=== PATIENT | male | born 1930 | race Caucasian/White ===

== ENCOUNTER 2017-03-17 12:21 | Observation (INO) | payer MEDICARE ==
[~2017-03-17] VITALS: Ht 170.2 cm; Wt 66.8 kg
[~2017-03-17 12:21] MED LIST: ALPR0.5T10 PO; ASPI-515 PO; CEPH-376 PO; CETI10TA18 PO; CHOL200024 PO; CITRICAL PO; DOCU100C33 PO; FISH OIL OMEGA1 EACH PO; GINK120C PO; LEVO50TA PO; MELO15TA24 PO; MULT-224 PO; NIAC500T4 PO; OMEP-110 PO; PRIM50TA PO; [UNRECOGNIZED DRUG - OTHER] PO; provastatin PO; vitamin e PO
[2017-03-17] MEDS ORDERED: ONDANSETRON 2MG/ML, 2ML IVPush ONE (12:30)
[2017-03-17] MEDS ORDERED: ONDANSETRON 2MG/ML, 2ML ONE (12:41)
[2017-03-17] MEDS ORDERED: HYDROmorphone 2 MG/ML, 1ML ONE ×3 (12:41→15:07)
[2017-03-17] MEDS: HYDROmorphone 2 MG/ML, 1ML IVPush PRN ×3 (12:45→15:09)
[2017-03-17 12:58] LABS: BASOPHILS # (AUTO) 0.02 x10^3/uL (0-0.1); BASOPHILS % (AUTO) 0 % (0-1); EOSINOPHILS % (AUTO) 3 % (1-7); LYMPHOCYTES # (AUTO) 2.33 x10^3/uL (1-3.4); LYMPHOCYTES % (AUTO) 33 % (22-44); MD NO; MEAN CORPUSCULAR HGB CONC 33.5 g/dL (33.2-36.2); MEAN CORPUSCULAR VOLUME 92.6 fL (81-97); MEAN PLATELET VOLUME 9.8 fL (7.4-10.4); MONOCYTES % (AUTO) 11 % (2-9); NEUTROPHILS # (AUTO) 3.69 x10^3/uL (1.8-6.8); NEUTROPHILS % (AUTO) 53 % (42-75); PLATELET COUNT 186 x10^3/uL (130-400); RED CELL DISTRIBUTION WIDTH 12.6 % (9.4-14.8)
[2017-03-17 13:10] LABS: ALANINE AMINOTRANSFERASE 25 U/L (12-78); ALBUMIN 3.9 g/dL (3.4-5.0); ANION GAP 12 mmol/L (5-15); CHLORIDE 106 mmol/L (98-107); CREATININE 1.09 mg/dL (0.7-1.3)
[2017-03-17 13:12] LABS: ALKALINE PHOSPHATASE 72 U/L (45-117); BILIRUBIN,TOTAL 0.4 mg/dL (0.2-1.0); TOTAL PROTEIN 7.6 g/dL (6.4-8.2)
[2017-03-17 13:13] LABS: ACETAMINOPHEN < 2 mcg/mL (10-30)
[2017-03-17] MEDS ORDERED: OMNIPAQUE 350 MG/ML, 100ML BOTTLE ONE (14:33)
[2017-03-17] MEDS ORDERED: HYDROmorphone 2 MG/ML, 1ML IVPush PRN (15:00)
[2017-03-17] MEDS ORDERED: ENALAPRILAT 1.25 MG/ML, 2ML IVPush PRN (16:00)
[2017-03-17] MEDS ORDERED: ONDANSETRON ODT 4 MG PO PRN (16:00)
[2017-03-17] MEDS ORDERED: OXYcodone/APAP 5/325MG TABLET PO PRN (16:00)
[2017-03-17] MEDS ORDERED: ACETAMINOPHEN 325 MG TABLET PO PRN (16:00)
[2017-03-17] MEDS ORDERED: ONDANSETRON 2MG/ML, 2ML IVPush PRN (16:00)
[2017-03-17] MEDS ORDERED: DOCUSATE 100 MG CAPSULE PO PRN (16:00)
[2017-03-17] MEDS ORDERED: LABETALOL 5MG/ML, 20ML IVPush PRN (16:00)
[2017-03-17] MEDS ORDERED: SODIUM CHLORIDE 0.9% 1,000 ML IV ONE (16:00)
[2017-03-17] MEDS ORDERED: ENOXAPARIN 40 MG/0.4 ML SQ SCH (16:00)
[2017-03-17] MEDS ORDERED: DIAZEPAM 5 MG TABLET PO ONE (16:00)
[2017-03-17 16:42] VITALS: BP 143/70
[2017-03-17 18:21] VITALS: BP 118/74
[2017-03-17] MEDS: OMEPRAZOLE 20 MG CAPSULE.DR PO SCH (21:00)
[2017-03-17] MEDS ORDERED: [UNRECOGNIZED DRUG - OTHER] PO SCH (21:00)
[2017-03-17] MEDS ORDERED: DOCUSATE 100 MG CAPSULE PO SCH (21:00)
[2017-03-17] MEDS: BACLOFEN 10 MG TABLET PO SCH (21:00)
[2017-03-17] MEDS ORDERED: PRAVASTATIN 20 MG TABLET PO SCH (21:00)
[2017-03-17] MEDS: PRIMIDONE 50 MG TABLET PO SCH (21:01)
[2017-03-18 02:40] VITALS: BP 101/58
[2017-03-18 06:04] LABS: ANION GAP 7 mmol/L (5-15); CALCIUM 8.4 mg/dL (8.5-10.1); CHLORIDE 112 mmol/L (98-107); CREATININE 0.97 mg/dL (0.7-1.3)
[2017-03-18 06:31] LABS: BASOPHILS # (AUTO) 0.05 x10^3/uL (0-0.1); BASOPHILS % (AUTO) 1 % (0-1); EOSINOPHILS # (AUTO) 0.26 x10^3/uL (0-0.4); EOSINOPHILS % (AUTO) 4 % (1-7); LYMPHOCYTES # (AUTO) 3.24 x10^3/uL (1-3.4); LYMPHOCYTES % (AUTO) 45 % (22-44); MD SCAN; MEAN CORPUSCULAR HEMOGLOBIN 31.1 pg (27.5-34.5); MEAN CORPUSCULAR HGB CONC 33.6 g/dL (33.2-36.2); MEAN CORPUSCULAR VOLUME 92.6 fL (81-97); MEAN PLATELET VOLUME 10.2 fL (7.4-10.4); MONOCYTES # (AUTO) 0.89 x10^3/uL (0.2-0.8); MONOCYTES % (AUTO) 12 % (2-9); NEUTROPHILS # (AUTO) 2.78 x10^3/uL (1.8-6.8); NEUTROPHILS % (AUTO) 39 % (42-75); PLATELET COUNT 148 x10^3/uL (130-400); RED BLOOD COUNT 4.86 x10^6/uL (4.38-5.82)
[2017-03-18] MEDS ORDERED: CALCIUM/VITAMIN D3 250-125 TABLET PO SCH (09:00)
[2017-03-18] MEDS: BACLOFEN 10 MG TABLET PO SCH (09:00)
[2017-03-18] MEDS ORDERED: LEVOTHYROXINE 50 MCG TABLET PO SCH (09:00)
[2017-03-18] MEDS ORDERED: OMEGA-3/FISH OIL CAPSULE PO SCH (09:00)
[2017-03-18] MEDS ORDERED: CHOLECALCIFEROL 400 UNITS TABLET PO SCH (09:00)
[2017-03-18] MEDS ORDERED: SENNA/DOCUSATE TABLET PO SCH (09:00)
[2017-03-18] MEDS ORDERED: MULTIVITAMIN 1 TABLET PO SCH (09:00)
[2017-03-18] MEDS ORDERED: GINKGO BILOBA EXTRACT 120 MG PO SCH (09:00)
[2017-03-18] MEDS ORDERED: ASPIRIN 81 MG TABLET EC PO SCH (09:00)
[2017-03-18] MEDS ORDERED: VITAMIN E 400 UNITS CAPSULE PO SCH (09:00)
[2017-03-18 10:35] VITALS: BP 164/81
[2017-03-18] MEDS: PRIMIDONE 50 MG TABLET PO SCH (10:42)
[2017-03-18] MEDS: OMEPRAZOLE 20 MG CAPSULE.DR PO SCH (10:42)
[2017-03-18] MEDS ORDERED: BACL-19 PO (11:36)
[2017-03-18 13:16] VITALS: BP 140/76
== END 2017-03-18 14:39 | disposition home or self-care (01) ==
LOC: ED 14:39 → EDIP 14:57 → INTOOBSV 14:57 → 3NE 16:10 → DCLOUNGE 03-18 14:30
PROVIDERS: ADMIT Family Medicine; ATTEND Family Medicine
DX: M50.30 Other cervical disc degeneration, unspecified cervical region (principal); R00.1 Bradycardia, unspecified; M19.90 Unspecified osteoarthritis, unspecified site; K21.9 Gastro-esophageal reflux disease without esophagitis; G89.29 Other chronic pain; Z85.828 Personal history of other malignant neoplasm of skin; Z87.11 Personal history of peptic ulcer disease; Z96.652 Presence of left artificial knee joint
CPT/HCPCS: 36415; 70450; 70496; 70498; 72125; 72141; 80048; 80053; 80307; 85025; 93005; 96361; 96374; 96375; 96376; 97163; 97165; 99285; G0378; G8978; G8979; G8980; J1170; J2405; J7030; Q9967

== ENCOUNTER → 2017-05-05 | Outpatient (CLI) | payer MEDICARE ==
[~2017-05-05] MED LIST changes: +BACL-19 PO
== END | disposition home or self-care (01) ==
LOC: CFH 09:10
PROVIDERS: ATTEND Neurological Surgery
DX: M47.812 Spondylosis without myelopathy or radiculopathy, cervical region (principal)
CPT/HCPCS: 72050; 72125

== ENCOUNTER → 2017-08-04 | Outpatient (CLI) | payer MEDICARE | END | disposition home or self-care (01) | LOC: CFH 11:27 | PROVIDERS: ATTEND Registered Nurse Registered Nurse First Assistant | DX: M50.33 Other cervical disc degeneration, cervicothoracic region (principal); M41.82 Other forms of scoliosis, cervical region | CPT/HCPCS: 72040 ==

== ENCOUNTER 2018-01-16 12:41 | Inpatient (IN) | payer MEDICARE ==
[~2018-01-16] VITALS: Ht 170.2 cm; Wt 62.5 kg
[2018-01-16] MEDS ORDERED: SODIUM CHLORIDE 0.9% 1,000 ML IV ONE (13:37)
[2018-01-16] MEDS ORDERED: SODIUM CHLORIDE FLUSH 10ML SYR IVF ONE (14:00)
[2018-01-16 14:06] LABS: BASOPHILS # (AUTO) 0.02 x10^3/uL (0-0.1); BASOPHILS % (AUTO) 0 % (0-1); EOSINOPHILS # (AUTO) 0.18 x10^3/uL (0-0.4); EOSINOPHILS % (AUTO) 4 % (1-7); LYMPHOCYTES # (AUTO) 1.84 x10^3/uL (1-3.4); LYMPHOCYTES % (AUTO) 37 % (22-44); MD NO; MEAN CORPUSCULAR HEMOGLOBIN 30.3 pg (27.5-34.5); MEAN CORPUSCULAR HGB CONC 33.7 g/dL (33.2-36.2); MEAN CORPUSCULAR VOLUME 89.8 fL (81-97); MEAN PLATELET VOLUME 9.3 fL (7.4-10.4); MONOCYTES # (AUTO) 0.49 x10^3/uL (0.2-0.8); MONOCYTES % (AUTO) 10 % (2-9); NEUTROPHILS # (AUTO) 2.41 x10^3/uL (1.8-6.8); NEUTROPHILS % (AUTO) 49 % (42-75); PLATELET COUNT 178 x10^3/uL (130-400); RED BLOOD COUNT 4.95 x10^6/uL (4.38-5.82); RED CELL DISTRIBUTION WIDTH 15.3 % (9.4-14.8)
[2018-01-16 14:13] LABS: ALANINE AMINOTRANSFERASE 21 U/L (12-78); ALBUMIN 3.7 g/dL (3.4-5.0); ANION GAP 5 mmol/L (5-15); CALCIUM 8.5 mg/dL (8.5-10.1); CHLORIDE 110 mmol/L (98-107); CREATININE 0.98 mg/dL (0.7-1.3)
[2018-01-16 14:17] LABS: ALKALINE PHOSPHATASE 71 U/L (45-117); BILIRUBIN,TOTAL 0.4 mg/dL (0.2-1.0); TOTAL PROTEIN 6.7 g/dL (6.4-8.2); TROPONIN I < 0.015 ng/mL (0.000-0.045)
[2018-01-16] MEDS ORDERED: OMNIPAQUE 350 MG/ML, 100ML BOTTLE ONE (14:59)
[2018-01-16 15:38] LABS: MICROSCOPIC NOT IND
[2018-01-16 15:42] LABS: CULTURE INDICATED? NO
[2018-01-16] MEDS: SODIUM CHLORIDE 0.9% 1,000 ML IV SCH ×2 (15:45→22:04)
[2018-01-16] MEDS ORDERED: ACETAMINOPHEN 325 MG TABLET PO PRN (16:00)
[2018-01-16] MEDS ORDERED: MECLIZINE CHEWABLE 25 MG TAB PO PRN (16:00)
[2018-01-16 16:21] VITALS: BP 148/61
[2018-01-16] MEDS ORDERED: OXYC5CAP2 PO (16:28)
[2018-01-16 17:04] VITALS: BP 123/59
[2018-01-16] MEDS ORDERED: ENOXAPARIN 40 MG/0.4 ML ONE (17:32)
[2018-01-16] MEDS: OXYcodone/APAP 10/325MG TABLET PO PRN (17:35)
[2018-01-16] MEDS: ENOXAPARIN 40 MG/0.4 ML SQ SCH (17:35)
[2018-01-16 19:40] VITALS: BP 142/69
[2018-01-16] MEDS: DOCUSATE 100 MG CAPSULE PO SCH (20:53)
[2018-01-16] MEDS ORDERED: PRIMIDONE 50 MG TABLET PO SCH (21:00)
[2018-01-17] VITALS (9 sets, daily range): BP systolic 121–153; BP diastolic 62–76
[2018-01-17 05:02] LABS: BASOPHILS # (AUTO) 0.03 x10^3/uL (0-0.1); BASOPHILS % (AUTO) 1 % (0-1); EOSINOPHILS # (AUTO) 0.23 x10^3/uL (0-0.4); EOSINOPHILS % (AUTO) 4 % (1-7); LYMPHOCYTES # (AUTO) 1.86 x10^3/uL (1-3.4); LYMPHOCYTES % (AUTO) 33 % (22-44); MD NO; MEAN CORPUSCULAR HEMOGLOBIN 30.8 pg (27.5-34.5); MEAN CORPUSCULAR HGB CONC 34.6 g/dL (33.2-36.2); MEAN PLATELET VOLUME 9.3 fL (7.4-10.4); MONOCYTES # (AUTO) 0.68 x10^3/uL (0.2-0.8); MONOCYTES % (AUTO) 12 % (2-9); NEUTROPHILS # (AUTO) 2.81 x10^3/uL (1.8-6.8); NEUTROPHILS % (AUTO) 50 % (42-75); PLATELET COUNT 167 x10^3/uL (130-400); RED BLOOD COUNT 4.42 x10^6/uL (4.38-5.82); RED CELL DISTRIBUTION WIDTH 15.1 % (9.4-14.8)
[2018-01-17 05:12] LABS: ALBUMIN 3.1 g/dL (3.4-5.0); ANION GAP 9 mmol/L (5-15); CALCIUM 7.9 mg/dL (8.5-10.1); CHLORIDE 112 mmol/L (98-107)
[2018-01-17 05:15] LABS: ALANINE AMINOTRANSFERASE 16 U/L (12-78); ALKALINE PHOSPHATASE 58 U/L (45-117); BILIRUBIN,TOTAL 0.3 mg/dL (0.2-1.0); CHOLESTEROL, TOTAL 121 mg/dL (140-239); CREATININE 0.83 mg/dL (0.7-1.3); HDL CHOL % 33 % (26-37); HDL CHOLESTEROL (DIRECT) 40 mg/dL (40-60); LDL CHOLESTEROL,CALCULATED 44 mg/dL (54-169); LDL/HDL RATIO 1.1 (0.5-3.0); TOTAL PROTEIN 5.6 g/dL (6.4-8.2); TRIGLYCERIDES 183 mg/dL (50-200); VLDL CHOLESTEROL 37 mg/dL (0-25)
[2018-01-17] MEDS: ASPIRIN 81 MG TABLET EC PO SCH (05:58)
[2018-01-17] MEDS ORDERED: LEVOTHYROXINE 50 MCG TABLET ONE (06:06)
[2018-01-17] MEDS: LEVOTHYROXINE 50 MCG TABLET PO SCH (06:10)
[2018-01-17] MEDS ORDERED: ASPIRIN 81 MG TABLET EC PO SCH (09:00)
[2018-01-17] MEDS ORDERED: LEVOTHYROXINE 50 MCG TABLET PO SCH (09:00)
[2018-01-17] MEDS ORDERED: PRIMIDONE 250 MG TABLET ONE (09:01)
[2018-01-17] MEDS: PRIMIDONE 50 MG TABLET PO SCH ×2 (10:05→21:00)
[2018-01-17] MEDS: SODIUM CHLORIDE 0.9% 1,000 ML IV SCH (12:48)
[2018-01-17] MEDS: ENOXAPARIN 40 MG/0.4 ML SQ SCH (14:57)
[2018-01-17] MEDS: OXYcodone/APAP 10/325MG TABLET PO PRN ×3 (14:57→21:00)
[2018-01-17] MEDS: DOCUSATE 100 MG CAPSULE PO SCH (20:59)
[2018-01-18] VITALS (9 sets, daily range): BP systolic 104–157; BP diastolic 57–93
[2018-01-18] MEDS: OXYcodone/APAP 10/325MG TABLET PO PRN ×2 (03:10→08:12)
[2018-01-18] MEDS: ASPIRIN 81 MG TABLET EC PO SCH (06:26)
[2018-01-18] MEDS: LEVOTHYROXINE 50 MCG TABLET PO SCH (06:26)
[2018-01-18] MEDS: PRIMIDONE 50 MG TABLET PO SCH (08:13)
== END 2018-01-18 11:25 | disposition home or self-care (01) | DRG 309 ==
LOC: ED 15:02 → EDIP 15:03 → ED 15:41 → 5SO 17:31 → DCLOUNGE 01-18 11:13
PROVIDERS: ADMIT Internal Medicine; ATTEND Internal Medicine
DX: R00.1 Bradycardia, unspecified (principal); E44.0 Moderate protein-calorie malnutrition; G25.0 Essential tremor; M54.2 Cervicalgia; E03.9 Hypothyroidism, unspecified; G89.29 Other chronic pain; K21.9 Gastro-esophageal reflux disease without esophagitis; M19.90 Unspecified osteoarthritis, unspecified site; Z79.891 Long term (current) use of opiate analgesic; Z79.82 Long term (current) use of aspirin; Z79.899 Other long term (current) drug therapy; Z68.21 Body mass index [BMI] 21.0-21.9, adult; Z88.2 Allergy status to sulfonamides; Z88.8 Allergy status to other drugs, medicaments and biological substances
CPT/HCPCS: 0399T; 36415; 70450; 70498; 80053; 80061; 81003; 82962; 83735; 84443; 84484; 85025; 93005; 93306; 99285; G0378; J1650; Q9967; J7030

== ENCOUNTER → 2018-01-27 | Outpatient (CLI) | payer MEDICARE ==
[~2018-01-27] MED LIST changes: +OXYC5CAP2 PO
== END | disposition home or self-care (01) ==
LOC: CFH 14:17
PROVIDERS: ATTEND Neurological Surgery
DX: M50.30 Other cervical disc degeneration, unspecified cervical region (principal); M85.48 Solitary bone cyst, other site; M47.812 Spondylosis without myelopathy or radiculopathy, cervical region
CPT/HCPCS: 72052; 72125

== ENCOUNTER 2018-09-19 16:56 | Emergency (ER) | payer MEDICARE ==
[~2018-09-19] VITALS: Ht 170.2 cm; Wt 63.9 kg
[~2018-09-19 16:56] MED LIST changes: -MULT-224 PO; +MULT-642 PO
[2018-09-19 18:21] LABS: BASOPHILS # (AUTO) 0.04 x10^3/uL (0-0.1); BASOPHILS % (AUTO) 1 % (0-1); EOSINOPHILS # (AUTO) 0.16 x10^3/uL (0-0.4); EOSINOPHILS % (AUTO) 2 % (1-7); LYMPHOCYTES # (AUTO) 2.55 x10^3/uL (1-3.4); LYMPHOCYTES % (AUTO) 35 % (22-44); MD NO; MEAN CORPUSCULAR HEMOGLOBIN 31.5 pg (27.5-34.5); MEAN CORPUSCULAR HGB CONC 33.6 g/dL (33.2-36.2); MEAN CORPUSCULAR VOLUME 93.7 fL (81-97); MEAN PLATELET VOLUME 9.6 fL (7.4-10.4); MONOCYTES # (AUTO) 0.77 x10^3/uL (0.2-0.8); MONOCYTES % (AUTO) 11 % (2-9); NEUTROPHILS # (AUTO) 3.83 x10^3/uL (1.8-6.8); NEUTROPHILS % (AUTO) 52 % (42-75); PLATELET COUNT 182 x10^3/uL (130-400); RED BLOOD COUNT 4.88 x10^6/uL (4.38-5.82); RED CELL DISTRIBUTION WIDTH 13.3 % (9.4-14.8)
[2018-09-19 18:31] LABS: ALANINE AMINOTRANSFERASE 21 U/L (12-78); ALBUMIN 3.6 g/dL (3.4-5.0); ANION GAP 5 mmol/L (5-15); CHLORIDE 110 mmol/L (98-107); CREATININE 0.87 mg/dL (0.7-1.3)
[2018-09-19 18:35] LABS: ALKALINE PHOSPHATASE 74 U/L (45-117); BILIRUBIN,TOTAL 0.3 mg/dL (0.2-1.0); TOTAL PROTEIN 7.1 g/dL (6.4-8.2); TROPONIN I < 0.015 ng/mL (0.000-0.045)
[2018-09-19 18:35] LABS: MICROSCOPIC NOT IND
[2018-09-19 18:37] LABS: CULTURE INDICATED? NO
--- NOTE | 2018-09-19 18:50 | NUR ---
Patient to room for weakness for several months. at bedside; VSS
[2018-09-19] MEDS ORDERED: SODIUM CHLORIDE 0.9% 1,000 ML IV SCH (19:46)
[2018-09-19] MEDS ORDERED: PRAV20TA2 PO (19:46)
[2018-09-19] MEDS ORDERED: MAGN400T36 PO (19:46)
[2018-09-19] MEDS ORDERED: CALC1WAF PO (19:46)
[2018-09-19] MEDS ORDERED: ASCO10004 PO (19:46)
[2018-09-19] MEDS ORDERED: OXYB10TA PO (19:46)
--- NOTE | 2018-09-19 19:51 | NUR ---
Hospitalist at patient's bedside; assessment complete; educated patient on admission criteria and informed of admission for observation. Med rec complete; patient verbalized understanding. Awaiting room placement.
[2018-09-19] MEDS ORDERED: hydrALAzine 20 MG/ML, 1ML IVPush PRN (20:00)
[2018-09-19] MEDS ORDERED: DOCUSATE 100 MG CAPSULE PO PRN (20:00)
[2018-09-19] MEDS ORDERED: ONDANSETRON 2MG/ML, 2ML IVPush PRN (20:00)
[2018-09-19] MEDS ORDERED: ENOXAPARIN 40 MG/0.4 ML SQ SCH (20:00)
[2018-09-19] MEDS ORDERED: ACETAMINOPHEN 325 MG TABLET PO PRN (20:00)
[2018-09-19] MEDS ORDERED: ONDANSETRON ODT 4 MG PO PRN (20:00)
[2018-09-19] MEDS ORDERED: LIDODERM 5% PATCH TD PRN (20:00)
[2018-09-19] MEDS ORDERED: POLYETHYLENE GLYCOL 17 GM PACKET PO PRN (20:00)
[2018-09-19] MEDS ORDERED: ENALAPRILAT 1.25 MG/ML, 2ML IVPush PRN (20:00)
[2018-09-19] MEDS ORDERED: BISACODYL 10 MG SUPP PR PRN (20:00)
--- NOTE | 2018-09-19 20:24 | NUR ---
pt prefers to be dc tonight and not be admitted. hospitalist aware and will cancel orders. Dr. Hameed aware and will dc.
[2018-09-19] MEDS ORDERED: PRAVASTATIN 20 MG TABLET PO SCH (21:00)
[2018-09-19] MEDS ORDERED: PRIMIDONE 50 MG TABLET PO SCH (21:00)
[2018-09-19 21:03] VITALS: BP 155/70
--- NOTE | 2018-09-19 21:04 | NUR ---
Pt questioning ability to go home; updated on orders process; awaiting discharge.
[2018-09-20] MEDS ORDERED: OMEGA PO SCH (09:00)
[2018-09-20] MEDS ORDERED: MAGNESIUM PO SCH (09:00)
[2018-09-20] MEDS ORDERED: TEMPLATE NON-FORMULARY MED. (Magnesium Oxide (Magnesium) 1 TAB) PO SCH (09:00)
[2018-09-20] MEDS ORDERED: FISH OIL PO SCH (09:00)
[2018-09-20] MEDS ORDERED: TEMPLATE NON-FORMULARY MED. (Cholecalciferol (Vitamin D3)** (Vitamin D3**) 2,000 UNIT) PO SCH (09:00)
[2018-09-20] MEDS ORDERED: TEMPLATE NON-FORMULARY MED. (Ascorbic Acid** (Vitamin C**) 1,000 MG) PO SCH (09:00)
[2018-09-20] MEDS ORDERED: CALCIUM CITRATE PO SCH (09:00)
[2018-09-20] MEDS ORDERED: D3 PO SCH (09:00)
[2018-09-20] MEDS ORDERED: [UNRECOGNIZED DRUG - OTHER] PO SCH (09:00)
[2018-09-20] MEDS ORDERED: TEMPLATE NON-FORMULARY MED. (Oxybutynin Chloride** (Oxybutynin Chloride Er**) 10 MG) PO SCH (09:00)
[2018-09-20] MEDS ORDERED: [UNRECOGNIZED DRUG - OTHER] PO SCH (09:00)
[2018-09-20] MEDS ORDERED: DHA PO SCH (09:00)
[2018-09-20] MEDS ORDERED: EPA PO SCH (09:00)
== END 2018-09-19 21:39 | disposition home or self-care (01) ==
LOC: ED 19:21 → UNDOADMOB 19:22 → EDIP 19:22 → INTOOBSV 19:22 → ED 21:39
DX: R00.1 Bradycardia, unspecified (principal); R53.1 Weakness; K21.9 Gastro-esophageal reflux disease without esophagitis; Z85.828 Personal history of other malignant neoplasm of skin; Z90.49 Acquired absence of other specified parts of digestive tract; Z90.410 Acquired total absence of pancreas
CPT/HCPCS: 36415; 71045; 80053; 81003; 83735; 84100; 84443; 84484; 85025; 93005; 99284

== ENCOUNTER 2019-05-01 12:55 | Emergency (ER) | payer MEDICARE ==
[~2019-05-01] VITALS: Ht 167.6 cm; Wt 64.6 kg
[~2019-05-01 12:55] MED LIST changes: +ASCO10004 PO; +CALC1WAF PO; +MAGN400T36 PO; +NIAC-17 PO; -NIAC500T4 PO; +OXYB10TA26 PO; +PRAV20TA2 PO
--- NOTE | 2019-05-01 13:10 | NUR ---
FIRST CONTACT WITH PT. PT SEEN BY [facility] (SPELLING?) TODAY FOR C/O OF BRADYCARDIA, DIZZINESS, AND NECK PAIN FOR TWO YEARS. SENT HERE FOR POSSIBLE NEED OF PACEMAKER. PT'S AOX4. RESPS EVEN AND UNLABORED. SINUS GRICELDA RATE 40'S ON MANAGER CCU AT THIS TIME. ALL MONITORS IN PLACE. CALL LIGHT WITHIN REACH. EDMD AT BEDSIDE TO EVALUATE AT THIS TIME.
[2019-05-01] MEDS ORDERED: SODIUM CHLORIDE FLUSH 10ML SYR IVF ONE (13:30)
[2019-05-01 13:56] LABS: BASOPHILS # (AUTO) 0.02 x10^3/uL (0-0.1); BASOPHILS % (AUTO) 0 % (0-1); EOSINOPHILS # (AUTO) 0.21 x10^3/uL (0-0.4); EOSINOPHILS % (AUTO) 3 % (1-7); LYMPHOCYTES # (AUTO) 2.34 x10^3/uL (1-3.4); LYMPHOCYTES % (AUTO) 28 % (22-44); MD NO; MEAN CORPUSCULAR HEMOGLOBIN 30.7 pg (27.5-34.5); MEAN CORPUSCULAR HGB CONC 33.4 g/dL (33.2-36.2); MEAN PLATELET VOLUME 9.3 fL (7.4-10.4); MONOCYTES # (AUTO) 0.74 x10^3/uL (0.2-0.8); MONOCYTES % (AUTO) 9 % (2-9); NEUTROPHILS # (AUTO) 5.01 x10^3/uL (1.8-6.8); NEUTROPHILS % (AUTO) 60 % (42-75); PLATELET COUNT 180 x10^3/uL (130-400); RED BLOOD COUNT 4.92 x10^6/uL (4.38-5.82); RED CELL DISTRIBUTION WIDTH 13.7 % (9.4-14.8)
--- NOTE | 2019-05-01 13:57 | NUR ---
PIV EST ON L HAND WITHOUT COMPLICATIONS. PT TOLERATED WELL.
[2019-05-01 14:08] LABS: ALBUMIN 3.6 g/dL (3.4-5.0); ANION GAP 10 mmol/L (5-15); CALCIUM 8.9 mg/dL (8.5-10.1); CHLORIDE 108 mmol/L (98-107)
[2019-05-01 14:17] LABS: ALANINE AMINOTRANSFERASE 24 U/L (12-78); ALKALINE PHOSPHATASE 81 U/L (45-117); BILIRUBIN,TOTAL 0.3 mg/dL (0.2-1.0); CREATININE 0.88 mg/dL (0.7-1.3); T4 (THYROXINE) 9.2 mcg/dL (4.5-12.1)
--- NOTE | 2019-05-01 14:30 | NUR ---
PT IN XRAY AT THIS TIME.
[2019-05-01 14:44] VITALS: BP 148/63
--- NOTE | 2019-05-01 14:44 | NUR ---
PT BACK TO ROOM FROM XRAY
[2019-05-01] MEDS ORDERED: SODIUM CHLORIDE FLUSH 10ML SYR IVF PRN (15:00)
[2019-05-01] MEDS ORDERED: ESCI10TA PO (15:02)
[2019-05-01] MEDS ORDERED: PRIM50TA34 PO (15:02)
[2019-05-01] MEDS ORDERED: VITAMIN B6 (15:03)
[2019-05-01] MEDS ORDERED: MEMA5TAB PO (15:03)
--- NOTE | 2019-05-01 15:48 | NUR ---
Patient given discharge instructions and they have confirmed that they understand the instructions. Patient ambulatory with steady gait.
== END 2019-05-01 15:49 | disposition home or self-care (01) ==
LOC: ED 15:40
DX: M47.892 Other spondylosis, cervical region (principal); R00.1 Bradycardia, unspecified; K21.9 Gastro-esophageal reflux disease without esophagitis; Z90.49 Acquired absence of other specified parts of digestive tract
CPT/HCPCS: 36415; 71046; 72050; 80053; 83880; 84436; 84443; 85025; 93005; 99285